=== PATIENT | male | born 1960 | race Caucasian/White ===

== ENCOUNTER 2024-01-17 08:59 | Emergency (ER) | payer SELFPAY ==
[2024-01-17] MEDS ORDERED: KETOROLAC 30 MG/ML INJ ONE (09:31)
[2024-01-17] MEDS ORDERED: dexAMETHasone 10 MG/ML VIAL ONE (09:31)
--- NOTE | 2024-01-17 10:13 | RAD REPORT ---
EXAMINATION: CT LUMBAR SPINE WITHOUT CONTRAST CLINICAL INDICATION: Male, 63 years old. PAIN TECHNIQUE: Axial CT images were obtained through the lumbar spine in soft tissue and bone windows wit hout intravenous contrast. Coronal and Sagittal reformatted images were created from the data set. One or more of the following dose reduction techniques were used: Automated exposure control, adjustm ent of the mA and/ or kV according to patient size, and/or iterative reconstruction. Unless otherwise specified, incidental findings do not require dedicated imaging follow-up. COMPARISON: No prior exam. FINDINGS: For purposes of this dictation, it is assumed that there are 5 non rib-bearing lumbar type vertebrae, and the most caudal fully segmented lumbar vertebra is labeled L5. ALIGNMENT: Mild to moderate degenerative levoscoliosis of the lower lumbar spine. 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 BONES: No significant soft tissue abnormalities. No aggressive osseous lesions. DISCS: Multilevel spondylosis is present, moderate to advanced. Discogenic endplate changes are seen at L1-2, L3-4 and L5-S1. Vacuum disc degeneration is seen at these levels as well. There is prominent posterior osteophyte at L1-2, L3-4. LEVELS: Moderate central canal narrowing is present at L1-2, L3-4. SOFT TISSUE: No soft tissue abnormalities. IMPRESSION: No acute lumbar spine abnormalities. Advanced multilevel degenerative change as detailed.
--- NOTE | 2024-01-17 10:23 | ER ---
Nurse's Notes [facility] Name: Tae Kerr Age: 63 yrs Sex: Male : 1960 Arrival Date: 01/17/2024 Time: 08:59 Bed 18 Private MD: Diagnosis: Low back pain Presentation: 01/16 09:09 Chief complaint: Chief complaint: Patient states: left low back pain radiating down aa5 left leg that began approximately 1 week ago. Reports being seen at [facility] on Saturday. 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 09:09 Acuity: TRUNG 3 aa5 09:09 Coronavirus screen: At this time, the client does not indicate any symptoms associated aa5 with coronavirus-19. Ebola Screen: Patient denies travel to an Ebola-affected area in the 21 days before illness onset. 09:09 Method Of Arrival: Ambulatory aa5 09:09 Initial Sepsis Screen: Does the patient meet any 2 criteria? No. Patient's initial aa5 sepsis screen is negative. Does the patient have a suspected source of infection? No. Patient's initial sepsis screen is negative. Risk Assessment: Do you want to hurt yourself or someone else? Patient reports no desire to harm self or others. Onset of symptoms was 2023. Historical: - Allergies: 09:13 PENICILLINS; aa5 09:13 Zoloft; aa5 09:13 Zocor; aa5 - PMHx: 09:13 Back Problems; Hypertensive disorder; GERD; aa5 - Immunization history:: Adult Immunizations up to date. - Infectious Disease History:: Denies. - Family history:: not pertinent, pertinent for. - Social history:: Smoking status: unknown. Screenin:09 [facility] ED Fall Risk Assessment (Adult) History of falling in the last 3 months, kc6 including since admission No falls in past 3 months (0 pts) Confusion or Disorientation No (0 pts) Intoxicated or Sedated No (0 pts) Impaired Gait No (0 pts) Mobility Assist Device Used No (0 pt) Altered Elimination No (0 pt) Score/Fall Risk Level 0 - 2 = Low Risk Oriented to surroundings. Abuse screen: Denies threats or abuse. Denies injuries from another. Nutritional screening: No deficits noted. Tuberculosis screening: No symptoms or risk factors identified. Assessment: 09:09 General: Appears in no apparent distress. comfortable, well groomed, well developed, kc6 Behavior is calm, cooperative, appropriate for age. Pain: Complains of pain in left iliac crest, left hip and left leg Pain radiates to left leg Quality of pain is described as sharp, shooting, Pain began x1 week Is intermittent. Neuro: Level of Consciousness is awake, alert, obeys commands, Oriented to person, place, time, situation, Appropriate for age. Cardiovascular: Capillary refill < 3 seconds. Respiratory: Airway is patent Trachea midline Respiratory effort is even, unlabored, Respiratory pattern is regular, symmetrical. GI: No signs and/or symptoms were reported involving the gastrointestinal system. : No signs and/or symptoms were reported regarding the genitourinary system. EENT: No signs and/or symptoms were reported regarding the EENT system. Derm: No signs and/or symptoms reported regarding the dermatologic system. Skin is intact, is healthy with good turgor, Skin is pink, warm \\T\\ dry. Musculoskeletal: No signs and/or symptoms reported regarding the musculoskeletal system. Circulation, motion, and sensation intact. Capillary refill < 3 seconds, Range of motion: intact in all extremities. 10:47 Reassessment: Patient appears in no apparent distress at this time. No changes from kc6 previously documented assessment. Patient and/or family updated on plan of care and expected duration. Pain level reassessed. Patient is alert, oriented x 3, equal unlabored respirations, skin warm/dry/pink. Vital Signs: 09:09 BP 163 / 104; Pulse 80; Resp 18 S; Temp 97.8(TE); Pulse Ox 97% on R/A; aa5 10:47 BP 158 / 98; Pulse 64; Resp 18 S; Pulse Ox 99% on R/A; kc6 ED Course: 09:02 Patient arrived in ED. ra3 09:02 Dayton Red MD is Attending Physician. rt 09:07 Dory Germain, YUSUF is Primary Nurse. kc6 09:09 Patient maintains SpO2 saturation greater than 95% on room air. kc6 09:09 Patient has correct armband on for positive identification. Bed in low position. Call kc6 light in reach. Side rails up X 1. Pulse ox on. NIBP on. Door closed. Noise minimized. Lights dimmed. Pillow given. 09:16 Triage completed. aa5 09:42 CT Lumbar Spine Wo Con In Process Unspecified. EDMS 10:22 Manuel De Oliveira MD is Referral Physician. rt 10:48 No provider procedures requiring assistance completed. Patient did not have IV access kc6 during this emergency room visit. 10:48 Arm band placed on. kc6 Administered Medications: 09:35 Not Given (Other Intervention Used): TORadol - mg IVP once kc6 09:35 Not Given (Other Intervention Used): dexamethasone6 mg IVP once; (not to exceed 40 mg) kc6 09:36 Drug: Dexamethasone IM 6 mg IM once; verbal with read back Route: IM; Site: right kc6 deltoid; 10:26 Follow up: Response: No adverse reaction kc6 09:36 Drug: Ketorolac IM 15 mg IM once; verbal with read back Route: IM; Site: left deltoid; kc6 10:26 Follow up: Response: No adverse reaction kc6 Medication: 10:48 VIS not applicable for this client. kc6 Outcome: 10:22 Discharge ordered by MD. rt 10:48 Discharged to home ambulatory, kc6 10:48 Condition: good 10:48 Discharge instructions given to patient, Instructed on discharge instructions, follow up and referral plans. no drinking with medication, no driving heavy equipment, medication usage, Demonstrated understanding of instructions, follow-up care, medications, Prescriptions given X 1, 10:48 Patient left the ED. kc6 Signatures: Dispatcher [employer] EDMS Tesha Velazquez RN RN buck5 Dory Germain RN RN kc6 Dayton Red MD MD rt Virginie Echevarria ra3 Corrections: (The following items were deleted from the chart) 09:16 09:09 Chief complaint: aa5 aa5 09:17 09:14 Acuity: TRUNG 3 aa5 aa5
--- NOTE | 2024-01-17 10:23 | EDPHYS ---
Physician Documentation [facility] Name: Tae Kerr Age: 63 yrs Sex: Male : 1960 Arrival Date: 01/17/2024 Time: 08:59 Bed 18 Private MD: ED Physician Dayton Red HPI: 01/16 09:38 This 63 yrs old Male presents to ER via Ambulatory with complaints of Low Back Pain. rt 09:38 Patient presents to the ED with 5 days of worsening back pain rating down the left leg. rt Reports a numbness to the leg. States that it is worse with movement. Was seen at [facility], given medicines, no imaging. Denies acute complaints at this time, symptoms are moderate in severity, aching nature, no other aggravating or alleviating factors.. Historical: - Allergies: 09:13 PENICILLINS; aa5 09:13 Zoloft; aa5 09:13 Zocor; aa5 - PMHx: 09:13 Back Problems; Hypertensive disorder; GERD; aa5 - Immunization history:: Adult Immunizations up to date. - Infectious Disease History:: Denies. - Family history:: not pertinent, pertinent for. - Social history:: Smoking status: unknown. ROS: 09:38 Constitutional: Negative for fever, chills, and weight loss, Cardiovascular: Negative rt for chest pain, palpitations, and edema, Respiratory: Negative for shortness of breath, cough, wheezing, and pleuritic chest pain, Abdomen/GI: Negative for abdominal pain, nausea, vomiting, diarrhea, and constipation, MS/Extremity: Negative for injury and deformity, Skin: Negative for injury, rash, and discoloration, 09:38 Back: Positive for pain at rest, pain with movement, Exam: 09:38 Constitutional: This is a well developed, well nourished patient who is awake, alert, rt and in no acute distress. Head/Face: Normocephalic, atraumatic. Chest/axilla: Normal chest wall appearance and motion. Nontender with no deformity. No lesions are appreciated. Cardiovascular: Regular rate and rhythm with a normal S1 and S2. No gallops, murmurs, or rubs. Normal PMI, no JVD. No pulse deficits. Respiratory: Lungs have equal breath sounds bilaterally, clear to auscultation and percussion. No rales, rhonchi or wheezes noted. No increased work of breathing, no retractions or nasal flaring. Abdomen/GI: Soft, non-tender, with normal bowel sounds. No distension or tympany. No guarding or rebound. No evidence of tenderness throughout. 09:38 Back: Tenderness to the lower lumbar region to the left paraspinal region, no step-offs, Vital Signs: 09:09 BP 163 / 104; Pulse 80; Resp 18 S; Temp 97.8(TE); Pulse Ox 97% on R/A; aa5 10:47 BP 158 / 98; Pulse 64; Resp 18 S; Pulse Ox 99% on R/A; kc6 MDM: 09:07 Medical Screening Exam initiated rt 11:48 Differential diagnosis: Arthritis, disc disease, chronic back pain. Data reviewed: rt vital signs, nurses notes, radiologic studies. Independent interpretation of the following test(s) in the Emergency Department CT Scan: My interpretation is Intervertebral disc disease see no active rotation of CT scan images. Test considered but Not performed: Other Details No symptoms suggestive of cauda equina syndrome, spinal epidural abscess, emergent MRI is not indicated. Care significantly affected by the following chronic conditions: Hypertension. Counseling: I had a detailed discussion with the patient and/or guardian regarding the historical points, exam findings, and any diagnostic results supporting the discharge/admit diagnosis, radiology results, the need for outpatient follow up. Response to treatment: the patient's symptoms have mildly improved after treatment. 01/16 09:26 Order name: CT Lumbar Spine Wo Con; Complete Time: 10:14 rt Administered Medications: 09:35 Not Given (Other Intervention Used): TORadol - mg IVP once kc6 09:35 Not Given (Other Intervention Used): dexamethasone6 mg IVP once; (not to exceed 40 mg) kc6 09:36 Drug: Dexamethasone IM 6 mg IM once; verbal with read back Route: IM; Site: right kc6 deltoid; 10:26 Follow up: Response: No adverse reaction kc6 09:36 Drug: Ketorolac IM 15 mg IM once; verbal with read back Route: IM; Site: left deltoid; kc6 10:26 Follow up: Response: No adverse reaction kc6 Disposition Summary: 01/17/24 10:22 Discharge Ordered Notes: Location: Home rt Problem: an acute exacerbation rt Symptoms: have improved rt Condition: Stable rt Diagnosis - Low back pain rt Followup: rt - With: Manuel De Oliveira MD - When: 2 - 3 days - Reason: Discharge Instructions: - Discharge Summary Sheet rt - Acute Back Pain, Adult rt Forms: - Medication Reconciliation Form rt - Antibiotic Education rt - Prescription Opioid Use rt - Patient Portal Instructions rt - Leadership Thank You Letter rt Prescriptions: - Tramadol 50 mg Oral Tablet - take 1 tablet ORAL route every 8 hours as needed; 12 tablet; Refills: 0, rt Product Selection Permitted Signatures: Dispatcher [employer] EDTesha Amezcua RN RN aa5 Dory Germain RN RN kc6 Dayton Red MD MD rt
[2024-01-17 10:54] VITALS: TEMP 97.8
[2024-01-17 10:55] VITALS: BP 158/98; O2SAT 99
== END 2024-01-17 10:48 | disposition home or self-care (01) ==
LOC: ER 08:59
DX: M54.50 Low back pain, unspecified (principal)
CPT/HCPCS: 72131; 96372; 99284; J1100